=== PATIENT | male | born 1930 | race Caucasian/White ===

== ENCOUNTER 2016-07-14 11:52 | Emergency (ER) | payer MEDICARE, BC ==
--- NOTE | 2016-07-16 12:40 | ER ---
ADMIT: 07/14/2016 RM/LOC: ER [facility] MR#: [id number] [address] [id number] DAGO WORKMAN [address] [place] [address] [place] [address] Emergency Room Report SEX: M AGE: 85 : 1930 DATE: 07/14/2016 ADDENDUM: This is an 85-year-old white male with COPD, no cardiac disease that we know but increasingly short of breath, not feeling well. Chest x-ray, nothing acute. CBC and chemistry are essentially negative. He does have nebulizers at home. He has not been on any steroids recently. His lab was negative with the exception that he has a little bump of 703 on his BNP at this time. He also has had problems sleeping at night, may be getting a little more short of breath, so question that he might have a little early failure. I spoke with Dr. Cortes. We want to try him on Lasix 20 mg p.o. q.a.m. We gave him 20 here this afternoon, also Decadron 10 mg IM for his COPD. He also has nebulizers at home which he should continue to take. He is going to get lab on Tuesday and then follow up with Dr. Fernández. CONDITION ON DISCHARGE: Fair. Veto Bustillos MD/ gerald JOB #: [id number] CC: Veto Bustillos MD, Attending Physician
== END 2016-07-14 15:30 | disposition home or self-care (01) ==
LOC: ER 11:52
DX: I50.9 Heart failure, unspecified (principal); J44.9 Chronic obstructive pulmonary disease, unspecified; E78.5 Hyperlipidemia, unspecified; K21.9 Gastro-esophageal reflux disease without esophagitis

== ENCOUNTER → 2016-08-23 | Outpatient (CLI) | payer MEDICARE, BC ==
--- NOTE | ~2016-08-23 | ECH ---
Transthoracic Echocardiography Report (TTE) Demographics Patient Name DAGO WORKMAN Date of Study 08/23/2016 L Patient Number [id number] Visit Number [id number] Date of 1930 Room Number Accession Number [id number] Gender Male Age 85 year(s) Referring Taylor Almaguer [place] [employer] Bernarda Rodriguez [facility] Physician Physician Interpreting Marck Iraheta MD Commissioning Manager Physician Supervising Ordering Physician Taylor Almaguer MD/MLP Nurse Stress Environmental Projects Advisor Conclusions Summary Technically good exam. The estimated left ventricular ejection fraction is 60-65%. Diastolic assessment reveals Grade I diastolic dysfunction. There is mild aortic regurgitation by color Doppler. Procedure Type of Study TTE procedure:Echo Complete SF. Procedure Date Date: 08/23/2016 Start: 01:00 PM Technical Quality: Good visualization Indications:Congestive heart failure and Hypertension. Appropriate Use Criteria: 9 Height: 70 inches Weight: 195 pounds BSA: 2.06 m Rhythm: NSR HR: 60 bpm BP: 95/38 mmHg M-Mode/2D Measurements LV Diastolic Dimension: 4.32 cm LV Systolic Dimension: 2.36 cm LV Septum Diastolic: 0.93 cm LV PW Diastolic: 0.99 cm AO Root Dimension: 2.22 cm Cardiac Output: 5.19 l/min LA Dimension: 3.49 cm Cardiac Index: 2.52 l/min*m RV Diastolic Dimension: 3.71 cm LA volume index: 27 ml/m LVOT: 1.97 cm LVOT VTI: 28.4 cm RV Base: 2.8 cm LV Stroke volume: 86.52 ml RV Mid: 2.2 cm LV Stroke volume index: 42 ml/m TAPSE: 2.6 cm TDI-S': 14 cm/s Doppler Measurements AV Peak Velocity: 2.4 m/s MV Peak E-Wave: 0.92 m/s AV Peak Gradient: 23.04 mmHg MV Peak A-Wave: 0.89 m/s AV Mean Gradient: 11.07 mmHg MV E/A Ratio: 1.03 LVOT Peak Velocity: 1.32 m/s MV P1/2t: 59.5 msec AV Area (Continuity):1.75 cm MV Deceleration Time: 178.2 msec TR Velocity:2.27 m/s MV Area (PHT): 3.7 cm TR Gradient:20.61 mmHg PV Peak Velocity: 1.12 m/s Estimated RAP:3 mmHg PV Peak Gradient: 5.06 mmHg Estimated RVSP: 24 mmHg Estimated PASP: 23.61 mmHg E' Septal Velocity: 0.07 m/s A' Septal Velocity: 0.08 m/s E' Lateral Velocity: 0.1 m/s A' Lateral Velocity: 0.08 m/s RA Area: 12.33 cm Findings Left Ventricle Normal left ventricle size and function. Diastolic assessment reveals Grade I diastolic dysfunction. Right Ventricle Normal right ventricle structure and function. Left Atrium Normal left atrial size. Right Atrium Normal right atrial size. Mitral Valve Mild mitral annular calcification. Trivial mitral regurgitation by color Doppler. Aortic Valve The aortic valve is moderately sclerotic. There is mild aortic regurgitation by color Doppler. Tricuspid Valve Normal tricuspid valve structure and function. Trivial tricuspid regurgitation by color Doppler. Normal pulmonary pressures. Pulmonic Valve Normal pulmonic valve structure and function. Trivial pulmonic valve regurgitation by color Doppler. Pericardial Effusion No evidence of pericardial effusion. Miscellaneous Visualized portions of the aortic root and ascending aorta appear normal in size. Pleural Effusion No evidence of pleural effusion. Contractility Score LV regional wall motion:(0-Non visualized 1-Normal 2-Hypokinesis 3-Akinesis 4-Dyskinesis 5-Aneurysm) Signature
== END | disposition home or self-care (01) ==
LOC: CARD 12:50
DX: I11.0 Hypertensive heart disease with heart failure (principal); I50.9 Heart failure, unspecified; I35.1 Nonrheumatic aortic (valve) insufficiency